=== PATIENT | female | born 1955 | race Caucasian/White ===

== ENCOUNTER → 2016-10-31 | Day surgery (SDC) | payer MEDICARE, MEDICAID ==
[~2016-10-31] MED LIST: BUPIVACAINE HCL PF 0.5% 30 ML VIAL ONE; CANA100T PO; DIOV320T PO; FERR325T PO; FOLI400T PO; GABA300C5 PO; GLUCTAB PO; HUMI20KI SQ; HYDR-3580 PO; HYDR-3583 PO; LANTINJ SQ; LIPI40TA PO; METH2.5T PO; MULTTAB67 PO; PREG25 PO; PROPOFOL 200 MG/20 ML AMP IV ONE; TRIAMCINOLONE ACETONIDE 40 MG/ML VIAL I-ARTICULR ONE; methylPREDNISolone ACETATE 40 MG/ML VIAL I-ARTICULR ONE
--- NOTE | 2016-11-03 05:44 | M6 ---
cc: NELSON REDDY M.D. DATE 10/31/2016 DATE OF 1955 PROCEDURE Fluoroscopically guided injection bilateral sacroiliac joints. History and physical was completed and signed. Consent was signed. Procedure site was marked. Medications were listed and reconciled. Pain score was recorded. Allergies were noted. Time out was taken. Fluoroscopy time was recorded where applicable. Sedation was administered or directed by Dr. Reddy. The patient was given oxygen. The patient was monitored by a registered nurse. Total procedure time was greater than 15 minutes. PROCEDURE NOTE IV was started. Blood pressure cuff, pulse oximeter and EKG were applied. The patient was placed in the prone position on a Alberto table, sedated with small amounts of propofol titrated to effect. Vital signs were monitored and remained stable throughout the procedure. The sacral area was prepped with alcohol and 10% Betadine solution and draped with sterile drapes. Fluoroscopy was used shooting from medial to lateral to clearly visualize the posterior joint line of the bilateral sacroiliac joints. Separate sterile 5-inch, 22-gauge spinal needles were advanced into these joints under fluoroscopic guidance. There was negative aspiration for blood or any other type of fluid and at each location the patient was given 2 mL of 0.5% Marcaine, 20 mg of Depo-Medrol and 20 mg of Kenalog. Following the procedure the patient was taken to the recovery room with stable vital signs, neurologically intact. W. MD JUAN CARLOS Woodall/JOEY /10:41 AM /5:40 AM
== END | disposition home or self-care (01) ==
LOC: PHSDC 08:41
PROVIDERS: ATTEND Pain Medicine Interventional Pain Medicine
DX: M54.5 Low back pain (principal)
CPT/HCPCS: 99152; G0260; J1030; J3301; 27096

== ENCOUNTER → 2017-09-25 | Day surgery (SDC) | payer MEDICARE, MEDICAID ==
[~2017-09-25] MED LIST changes: -HYDR-3580 PO; +INFL100P IV; +LORA-650 PO
--- NOTE | 2017-09-25 11:12 | M6 ---
cc: NELSON REDDY M.D. DATE 09/25/2017 DATE OF 1955 PROCEDURE Fluoroscopically guided injection, bilateral sacroiliac joints. PROCEDURE NOTE History and physical was completed and signed. Consent was signed. Procedure site was marked. Medications were listed and reconciled. Pain score was recorded. Allergies were noted. Timeout was taken. Fluoroscopy time was recorded where applicable. Sedation was administered or directed by Dr. Reddy. The patient was given oxygen. The patient was monitored by a registered nurse. Total procedure time was greater than 15 minutes. An IV was started, blood pressure cuff, pulse oximeter and EKG were applied. The patient was placed in the prone position on a Alberto table, sedated with small amounts of propofol titrated to effect. Vital signs were monitored and remained stable throughout the procedure. The sacral area was prepped with alcohol and 10% Betadine solution and draped with sterile drapes. Fluoroscopy was used to visualize the posterior joint line of the bilateral sacroiliac joints. Separate sterile 5-inch, 22-gauge spinal needles were advanced into these joints under fluoroscopic guidance. There was negative aspiration for blood or any other type of fluid, and at each location the patient was given 2 mL of 0.5% Marcaine, 20 mg of Depo-Medrol, 20 mg of Kenalog. Following the procedure the patient was taken to the recovery room with stable vital signs, neurologically intact. She will be evaluated immediately and with follow-up to determine if she has a subjective decrease in her usual pain and a corresponding objective increase in her functional capabilities. WMD JUAN CARLOS Sifuentes/CONNOR /10:45 AM /10:53 AM
== END | disposition home or self-care (01) ==
LOC: PHSDC 08:32
PROVIDERS: ATTEND Pain Medicine Interventional Pain Medicine
DX: M54.5 Low back pain (principal)
CPT/HCPCS: 99152; G0260; J1030; J3301; 27096